=== PATIENT | female | born 1980 | race Caucasian/White ===

== ENCOUNTER 2019-10-09 08:21 | Outpatient (CLI) | payer MEDICAID, SELFPAY ==
--- NOTE | 2019-10-09 | US_ITS ---
WS: [id number] OBSTETRICAL ULTRASOUND COMPLETE HISTORY: MULTIGRAVIDA IN SECOND TRIMESTER COMPARISON: None available. Single intrauterine gestation in cephalic presentation. Cervix is Closed and normal length. Cervical length is 3.3 cm. Normal amount of amniotic fluid surrounds the fetus. Placenta: Posterior, no previa or abruption. Placenta grade 1 Heart: 153 BPM. Four chambers are identified. Anatomy: Poorly visualized posterior fossa. Remaining intracranial structures are normal. Spine is ne gative. kidneys, stomach and urinary bladder are unremarkable. Abdominal wall, three-vessel cor d and cord insertion site are normal. 4 extremities are present. profile: Unremarkable. Gender: Female. measurements: BPD = 4.9 cm = 20w6d HC = 18.4 cm = 20w5d AC = 15.9 cm = 21w0d FL = 3.5 cm = 21W1D EFW: 395 g., AGA by ultrasound: 21 weeks 0 day ZURI by ultrasound: 02/19/2020 US/US OB >= 14 weeks fetus [id number] IMPRESSION: 1. Single intrauterine gestation of 21 weeks 0 day with an EDC of 02/19/2020. 2. Unremarkable screening survey of anatomy.
== END 2019-10-09 08:22 | disposition home or self-care (01) ==
PROVIDERS: Family Provider Family Medicine; PCP Family Medicine; Visit Provider Family Medicine
DX: Z76.89 Persons encountering health services in other specified circumstances (principal)

== ENCOUNTER 2020-02-13 11:11 | Inpatient (IN) | payer MEDICAID, SELFPAY ==
[2020-02-13] VITALS (42 sets, daily range): BP systolic 0–163; BP diastolic 0–106; PULSE 61–102; RESP 16–18; TEMP 36.4–37.1; O2SAT 96–98; BMI 28.3
[2020-02-13 12:02] LABS: Basophils % 0.4 %; Eosinophils # 0.1 10^3/uL (0.0-0.8); Eosinophils % 0.7 %; Hematocrit 34.2 % (37.0-47.0); Hemoglobin 10.2 g/dL (11.5-15.3); Lymphocytes # 1.2 10^3/uL (0.8-4.8); Lymphocytes % 15.4 %; Mean Corpuscular HGB Conc 29.8 g/dL (30.0-36.0); Mean Corpuscular Hemoglobin 24.3 pg (28.0-34.0); Mean Corpuscular Volume 81.6 fL (81-99); Mean Platelet Volume 10.7 fL (7.4-10.4); Monocytes # 0.6 10^3/uL (0.2-0.9); Monocytes % 8.2 %; Neutrophils # 5.6 10^3/uL (1.8-7.7); Neutrophils % 73.7 %; Nucleated Red Blood Cells % 0 %; Platelet Count 166 10^3/cmm (130-400); Red Blood Count 4.19 10^6/uL (4.1-5.3); Red Cell Distribution Width 15.6 % (12.1-15.1); White Blood Count 7.5 10^3/uL (4.0-10.0)
[2020-02-13] MEDS: oxytocin 30 UNIT/500 ML BAG 600 UNIT IV ×2 (15:00→15:54)
--- NOTE | 2020-02-13 15:15 | PM.DELIVERY ---
Delivery Note: Date of delivery: February 13, 2020 Pre-delivery diagnoses: 1. 39-year-old 11 at 39 weeks estimated gestational age 2. Gestational hypertension 3. Advanced maternal age Procedure: Spontaneous vaginal delivery Op report anesthesia: None Estimated blood loss (mL): 150 Pre-Delivery Course: The patient had an unremarkable . She was GBS negative. Her glucose screen was negative. She was noted to have elevated blood pressures that ranged from a systolic of 130s to 150s. Due to her advanced maternal age and her gestational hypertension we induced the patient. The patient presented to the hospital for induction. An amniotomy was performed. She progressed to complete. I was then notified as the patient was delivering the head and I arrived in the room to assist in the delivery of the head and the remainder of the body. Delivery: DELIVERY: The patient progressed to complete without difficulty. She delivered a female with a weight of 9 pounds 14 ounces with Apgars of 9, 9. The baby was delivered from the CHI position. The baby's mouth and nose were suctioned at the site of the perineum. The baby was then completely delivered and placed on the mother's abdomen. The cord was then clamped and cut after delaying 1 minute. There was no nuchal cord. There was light meconium.. The placenta and 3 vessel cord were delivered intact shortly thereafter. The perineum and vaginal vault were carefully examined. No lacerations were noted. Both the mother and the baby were in stable condition. 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
[2020-02-13] MEDS: benzocaine-menthol 78 gm Canister 1 SPRAY TOPICAL (17:51)
[2020-02-13] MEDS: docusate sodium 100 mg Capsule PO (17:51)
[2020-02-13] MEDS: lanolin oint 7 gm 1 APPLIC TOPICAL (17:51)
--- NOTE | 2020-02-13 18:12 | PC.NURSE ---
Pt up to bathroom, void 200mL, concepcion care performed, pad/gown changed. Pt then ambulated to room 203 without difficulty. Oriented to room/call light/proud parent pack/feeding sheet.
[2020-02-14 01:02] VITALS: BP 131/80; PULSE 80; RESP 15; TEMP 36.9; O2SAT 95
[2020-02-14 03:04] LABS: Hemoglobin 9.7 g/dL (11.5-15.3); Mean Corpuscular HGB Conc 30.3 g/dL (30.0-36.0); Mean Corpuscular Hemoglobin 24.7 pg (28.0-34.0); Mean Corpuscular Volume 81.6 fL (81-99); Mean Platelet Volume 10.5 fL (7.4-10.4); Platelet Count 164 10^3/cmm (130-400); Red Blood Count 3.92 10^6/uL (4.1-5.3); Red Cell Distribution Width 15.5 % (12.1-15.1); White Blood Count 10.6 10^3/uL (4.0-10.0)
[2020-02-14 05:03] VITALS: BP 120/76; PULSE 77; RESP 16; TEMP 36.6; O2SAT 97
[2020-02-14 10:18] VITALS: BP 120/73; PULSE 82; RESP 16; TEMP 36.8; O2SAT 96
--- NOTE | 2020-02-14 14:59 | PM.OBGYDC ---
Discharge Providers CREDIT REVIEW MANAGER Date of Admission: 02/13/20 11:11 Date of Discharge: 02/14/20 Attending Provider at Admission: Reed Szymanski MD Attending Provider at Discharge: Reed Szymanski MD Primary Care Provider: Gen Carter MD Diagnoses at Discharge Discharge Diagnosis (1) 39 weeks gestation of : Status: Acute (2) Gestational hypertension: Status: Acute (3) Advanced maternal age (AMA) in : Status: Acute Reason for Visit Reason for Visit: induction of labor Hospital Course Hospital Course: Due to the patient's gestational hypertension, and advanced maternal age, the patient was induced at 39 weeks estimated gestational age. An amniotomy was performed. The patient then advanced to complete and had an unremarkable delivery of a healthy appearing 9 pound 14 ounce female . Her course was unremarkable. Her bleeding was within normal limits. She has bottle-fed her baby at this point. Her pain is been well controlled with minimal pain medication. She will be discharged home in stable condition. Information Peripartum Data: Delivery Method: Vaginal Physical Exam Narrative: EXAM NARRATIVE: The patient is alert. She appears comfortable. Her heart has a regular rate and rhythm with no murmurs appreciated. Lungs are clear to auscultation bilaterally. Her fundus is firm and below the umbilicus. Discharge Data Data Completed and Pending: Labs from last 24 hours 02/14/20 02:48 WBC 10.6 H RBC 3.92 L Hgb 9.7 L Hct 32.0 L MCV 81.6 MCH 24.7 L MCHC 30.3 RDW 15.5 H Plt Count 164 MPV 10.5 H Vitals: Last Vital Signs Temp 98.3 F 02/14/20 10:18 Pulse 82 02/14/20 10:18 Resp 16 02/14/20 10:18 BP 120/73 02/14/20 10:18 Pulse Ox 96 02/14/20 10:18 Discharge Plan Discharge Patient Disposition: Home, Self-Care Condition: Stable Prescriptions: New ibuprofen 800 mg Tablet 800 mg PO TID Qty: 30 RF: 0 Continued Vitamin 27 mg iron- 800 mcg Tablet 1 tab PO DAILY RF: 0 Discharge Orders: Discharge Order (Routine); Ordered 02/14/20 Ordered By: Reed Szymanski Referrals: Reed Szymanski MD [Physician] - 6 Weeks Discharge Diet: Usual diet Discharge Activity: Limit activity as instructed Discharge Attestations CREDIT REVIEW MANAGER Time Spent in Discharge Care*: less than 30 min Coding Level of Care Code 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
[2020-02-14 16:45] VITALS: BP 146/93; PULSE 89; RESP 16; TEMP 36.8; O2SAT 99
== END 2020-02-14 16:45 | disposition home or self-care (01) | DRG 807 ==
PROVIDERS: Admitting Provider Family Medicine; Family Provider Family Medicine; PCP Family Medicine; Visit Provider Family Medicine
DX: O13.4 Gestational [pregnancy-induced] hypertension without significant proteinuria, complicating childbirth (principal); Z37.0 Single live birth; Z3A.39 39 weeks gestation of pregnancy; O77.0 Labor and delivery complicated by meconium in amniotic fluid
CPT/HCPCS: 12345; 36415; 59025; 59409; 85025; 85027; 86850; 86900

== ENCOUNTER 2023-02-03 14:25 | Emergency (ER) | payer MEDICAID, SELFPAY ==
[2023-02-03 14:38] VITALS: BP 146/107; PULSE 85; RESP 18; TEMP 36.6; O2SAT 98
--- NOTE | 2023-02-03 15:01 | ED_ITS ---
HPI - Back Pain/Injury General: Chief Complaint: Back Pain/Injury Stated Complaint: Back pain Time Seen by Provider: 02/03/23 14:54 Source: patient Mode of arrival: ambulatory Limitations: no limitations History of Present Illness: Patient is a 42-year-old female who presents to ED today with complaint of lower back pain. She states approximately 4 days ago she bent over when she immediately felt discomfort in her lower back. She states pain is not radicular or move into her lower extremities at all. She not complain of numbness, tingling, loss of sensation. She has no saddle anesthesia or bowel/bladder dysfunction. She states she went to a chiropractor the following day after injury that seemed to help for a few hours. Pain seems to be worse with movement. MD elicited complaint: back pain and back injury Onset (ago): day(s) Timing: constant Severity: moderate Similar Symptoms Previously: No Location: lumbar spine Radiation: none Exacerbating factors: movement Relieving factors: immobilization Context: bending Associated symptoms: Reports no associated symptoms; Deny abdominal pain, chills, difficulty walking, dysuria, fatigue, fever(s) or hematuria Work related injury: No Review of Systems Const: Denies: fever(s), chills, body aches, fatigue or malaise Card: Denies: chest pain Resp: Denies: dyspnea GI: Denies: abdominal pain : Denies: flank pain, dysuria or hematuria Musc: Reports: back pain; Denies: neck pain, extremity pain, extremity swelling, joint pain or joint swelling Skin/Breast: Denies: rash Neuro: Denies: headache(s), numbness in extremities, weakness in extremities, sensory changes or difficulty walking Physical Exam Const: COMMON NORMALS: no acute distress, average body habitus, patient oriented x3, no limitations, healthy appearing, alert and well nourished Resp: COMMON NORMALS: normal respiratory effort and clear to auscultation bilaterally AUSCULTATION: clear to auscultation bilaterally Cardio: COMMON NORMALS: regular rate and regular rhythm RATE: regular rate RHYTHM: regular rhythm GI: COMMON NORMALS: Normal to inspection, nondistended, normoactive bowel sounds present, Soft to palpation, non-tender and no masses PALPATION: Yes Soft to palpation : COMMON NORMALS: Yes no CVA tenderness BLADDER/KIDNEY EXAM: Yes no CVA tenderness Back/Pelvis: COMMON NORMALS: no CVA tenderness THORACIC SPINE/UPPER BACK: Yes normal to inspection, Yes thoracic ROM normal, No thoracic spinal tenderness, No paraspinal muscle tenderness and No paraspinal muscle spasm LUMBAR SPINE/LOWER BACK: Yes normal to inspection, Yes ROM limited, Yes lumbar spinal tenderness, No paraspinal muscle tenderness, No paraspinal muscle spasm and Yes straight leg raise negative bilaterally PELVIS: Yes buttocks normal and No sciatic notch tenderness SACROILIAC JOINTS: Yes SI joints normal SACRUM: no tenderness COCCYX: no tenderness Extremity: COMMON NORMALS: normal to inspection, full ROM, capillary refill normal, no joint enlargement, no clubbing, cyanosis or edema, no calf tenderness and no pedal edema GENERAL: Yes normal exam except as noted Neuro: COMMON NORMALS: patient oriented x3, moves all extremities, no focal motor deficits and no sensory deficits noted SENSORIUM/ORIENTATION: Yes alert MOTOR EXAM: 5/5 motor strength present throughout Skin: COMMON NORMALS: no rashes or lesions noted GENERAL SKIN EXAM: no rashes or lesions noted Course Vital Signs: Vital signs: Vital Signs Temperature 97.9 F 02/03/23 14:38 Pulse Rate 85 02/03/23 14:38 Respiratory Rate 18 02/03/23 14:38 Blood Pressure 146/107 02/03/23 14:38 Pulse Oximetry 98 02/03/23 14:38 Oxygen Delivery Me thod Room Air 02/03/23 14:38 MDM - Back Pain/Injury Medical Decision Making Patient has no red flags on history. She has a normal neurologic physical examination. Patient will be placed on anti-inflammatories, steroids, muscle relaxers at home and recommend follow-up with primary care next week if symptoms do not seem to be improving. Return ED precautions given. Discharge Plan Discharge Patient Disposition: Home Clinical Impression: Strain of lumbar region Condition: Stable Prescriptions: New methylprednisolone [Medrol (Liam)] 4 mg tablets,dose pack See Rx Instructions .ROUTE .COMPLEX Qty: 21 0RF Rx Instructions: orally per package directions cyclobenzaprine 10 mg tablet 10 mg PO TID Qty: 14 0RF Continued ibuprofen 800 mg Tablet 800 mg PO TID Qty: 20 0RF No Action Vitamin 27 mg iron- 800 mcg Tablet 1 tab PO DAILY Discharge Orders: Discharge ED (Routine); Ordered 02/03/23 Ordered By: Kenisha Hall Referrals: Gen Carter MD [Primary Care Provider] - Patient Instructions: Low Back Strain (ED) Coding Level of Care Code ED 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
[2023-02-03] MEDS: ketorolac 60 mg/2 mL INJ IM (16:10)
[2023-02-03] MEDS: dexamethasone 10 mg/mL INJ 8 MG IM (16:10)
[2023-02-03] MEDS: diazePAM 5 mg Tablet PO (16:10)
[2023-02-03 17:12] VITALS: BP 148/91; PULSE 78; RESP 16; O2SAT 100
== END 2023-02-03 17:13 | disposition home or self-care (01) ==
PROVIDERS: Emergency Provider Physician Assistant; PCP Family Medicine
DX: S39.012A Strain of muscle, fascia and tendon of lower back, initial encounter (principal); X58.XXXA Exposure to other specified factors, initial encounter
CPT/HCPCS: 96372; 99284; J1100; J1885